=== PATIENT | female | born 1970 | race Caucasian/White ===

== ENCOUNTER 2021-05-15 19:12 | Emergency (ER) | payer BC, OTHER ==
[~2021-05-15] VITALS: Ht 157.5 cm; Wt 71.7 kg
[2021-05-15 19:56] LABS: ABSOLUTE NEUTROPHILS 4.2 thou/uL (1.4-8.2); BASOPHILS 0.5 % (0.0-2.0); EOSINOPHILS 1.7 % (0.0-3.0); HEMATOCRIT 39.8 % (37.0-47.0); LYMPHOCYTES 25.8 % (24.0-44.0); MCH 28.3 pg (26.0-34.0); MCHC 32.8 g/dL (28.0-37.0); MCV 86.4 fL (80.0-100.0); MONOCYTES 7.7 % (1.0-8.0); PLATELET COUNT 173 thou/uL (150-400); POLYS 64.3 % (36.0-66.0); RDW 13.3 % (10.5-14.5); WBC 6.5 thou/uL (4.0-11.0)
[2021-05-15 20:10] LABS: CALCIUM 9.7 mg/dL (8.5-10.1); POTASSIUM 4.3 mmol/L (3.5-5.1)
[2021-05-15 20:13] LABS: APTT 25.4 Seconds (24.5-32.8); INR 0.95; PROTIME 10.4 Seconds (10.5-12.1)
[2021-05-15 20:19] LABS: ALBUMIN 4.2 g/dL (3.4-5.0); DIRECT BILIRUBIN 0.1 mg/dL (<0.1-0.2); TOTAL BILIRUBIN 0.2 mg/dL (0.2-1.0); TOTAL PROTEIN 8.1 g/dL (6.4-8.2)
[2021-05-15 21:04] LABS: URINE BILIRUBIN NEGATIVE (Negative); URINE BLOOD NEGATIVE (Negative); URINE CLARITY CLEAR; URINE COLOR YELLOW; URINE GLUCOSE-RANDOM* NEGATIVE (Negative); URINE KETONES NEGATIVE (Negative); URINE LEUKOCYTES-REFLEX TRACE (Negative); URINE NITRITE-REFLEX NEGATIVE (Negative); URINE PROTEIN (DIPSTICK) NEGATIVE (Negative); URINE UROBILINOGEN 0.2 E.U./dl (0.2-1.0)
[2021-05-15] MEDS ORDERED: NOHOMEMEDICATIONS (23:34)
[2021-05-15 23:47] VITALS: BP 140/84
--- NOTE | 2021-05-16 07:41 | EKG ---
[place] [address] [employer] [place] [address] ELECTROCARDIOGRAM REPORT Name: ALYSE YIN Room #: [facility]ILLETaqueria#: [id number] Admission: 05/15/21 Attend Phys: Discharge: 05/15/21 Date of : 74 Report #: [id number] [facility] ED Test Date: 2021-05-15 Test Time: 19:35:22 Pat Name: ALYSE YIN Department: Room: Gender: F Maintenance Manager: PAM : 1970 Requested By: Sydnie Brand Order Number: [id number] MD: Luis F Perez Measurements Intervals [place] Rate: 57 P: 28 MO: 128 QRS: -13 QRSD: 87 T: -18 QT: 456 QTc: 444 Interpretive Statements Sinus bradycardia Left ventricular hypertrophy Possible inferior infarct, old Poor R wave progression Nonspecific T wave abnormality No previous ECG available for comparison Electronically Signed On 05-16-2021 7:41:17 [employer] by Lusi F Perez [email or web address] <ELECTRONICALLY SIGNED> By: Luis F Perez MD, [facility] 05/16/21 0741 [id number] 34 Luis F Perez MD, FACC /EPI
== END 2021-05-15 23:45 | disposition short-term general hospital (02) ==
LOC: ER 19:12
PROVIDERS: Emergency Medicine
DX: I61.1 Nontraumatic intracerebral hemorrhage in hemisphere, cortical (principal); Z20.822 Contact with and (suspected) exposure to COVID-19; I10 Essential (primary) hypertension; Z98.890 Other specified postprocedural states